=== PATIENT | female | born 1965 ===

== ENCOUNTER 2017-12-07 01:07 | Observation (INO) | payer OTHER ==
[~2017-12-07] VITALS: Ht 157.5 cm; Wt 75.3 kg
[~2017-12-07 01:07] MED LIST: CALC500T6 PO; CETI10CA8 PO; CHOL10005 PO; CYAN25004 PO; IBUP800T37 PO; MAGN400C PO; OMEP-125 PO; TRAM-420 PO
[2017-12-07] MEDS ORDERED: THROMBIN (BOVINE) 20,000 UNIT VIAL ONE (06:26)
[2017-12-07] MEDS ORDERED: PROPOFOL EMUL(*) 10MG/ML 20 ML 20 ML ONE (08:54)
[2017-12-07] MEDS ORDERED: ROCURONIUM BROM 10 MG/ML 10 ML ONE (08:54)
[2017-12-07] MEDS ORDERED: LIDOCAINE MPF 1% 5 ML VIAL ONE (08:54)
[2017-12-07] MEDS ORDERED: ONDANSETRON 4 MG/2 ML VIAL ONE (08:54)
[2017-12-07] MEDS ORDERED: DEXAMETHASONE SOD PHOS 10MG/ML ONE (08:54)
[2017-12-07] MEDS ORDERED: MIDAZOLAM 2 MG/2 ML VIAL ONE (08:55)
[2017-12-07] MEDS ORDERED: fentaNYL CITR 100 MCG/2 ML AMP ONE ×5 (08:55→17:20)
[2017-12-07 10:20] VITALS: BP 149/79
[2017-12-07] MEDS ORDERED: LIDOCAINE/SOD BICARB 8.4% SYR ID ONE (10:30)
[2017-12-07] MEDS ORDERED: ceFAZolin(*) 2GM/D5W 50ML 50 ML IVPB ONE (10:30)
[2017-12-07] MEDS ORDERED: NORMOSOL R SOLN(*) 1000 ML BAG 1,000 ML IV PRN (10:30)
[2017-12-07] MEDS ORDERED: MIDAZOLAM 2 MG/2 ML VIAL IVP PRN (10:30)
[2017-12-07] MEDS ORDERED: PHENYLEPHRINE 10 MG/1 ML VIAL ONE (10:51)
[2017-12-07] MEDS ORDERED: REMIFENTANIL HCL 1 MG VIAL ONE (10:51)
[2017-12-07] MEDS ORDERED: NS(*) 0.9% 100 ML BAG 100 ML ONE (10:51)
[2017-12-07] MEDS ORDERED: BUPIVACAIN 0.25% INJ 50ML VIAL ONE (11:44)
[2017-12-07] MEDS ORDERED: fentaNYL CITR 250 MCG/5 ML AMP ONE (14:14)
[2017-12-07] MEDS ORDERED: SUGAMMADEX SOD 200 MG/2 ML SDV ONE ×2 (14:35→17:59)
--- NOTE | 2017-12-07 15:26 | RADIOLOGY IMAGING REPORT ---
FACILITY: [facility] - [place] PATIENT NAME: Jocelin Zimmerman : 1965 MR: [id number] V: [id number] EXAM DATE: ORDERING PHYSICIAN: TONY GRIJALVA TECHNOLOGIST: [place] [facility] [place]ocelin Zimmre[place] : 1965 Visit/Account:[id number] Date of Sevice: 12/07/2017 Exam type: C-ARM FLUORO 1 HR History: LUMBAR SPINE HERNIATION Comparison: None. Findings: And AP and lateral cone-down intraoperative views of the lower lumbar spine worse similar for interpr etation demonstrating bilateral pedicle screws at L4 and L5 with posterior fixation rods and interver tebral disc spacer at L5-S1.. The cumulative continuous possibly dose was 3.27 mGray per meter squar ed. The total fluoroscopy time was 274.8 seconds IMPRESSION: 1. As above Report Dictated By: Dina Carter MD at 12/07/2017 3:20 PM Report E-Signed By: Dina Carter MD at 12/07/2017 3:22 PM WSN:[email or web address]
[2017-12-07] MEDS ORDERED: HYDROmorphone HCL 2 MG/ML SDV ONE (15:29)
[2017-12-07] MEDS ORDERED: FLUSH 10 ML SYR IVP PRN (15:35)
[2017-12-07] MEDS ORDERED: BISACODYL 10 MG SUPP PR PRN (15:35)
[2017-12-07] MEDS ORDERED: ACETAMINOPHEN 500 MG TAB PO PRN (15:35)
[2017-12-07] MEDS ORDERED: MAGNESIUM HYDROXIDE* 30ML UDCP PO PRN (15:35)
[2017-12-07] MEDS ORDERED: diphenhydrAMINE 25 MG CAP PO PRN (15:35)
[2017-12-07] MEDS ORDERED: ACETAMINOPHEN(*)1000 MG/100 ML 100 ML IVPB PRN (15:35)
[2017-12-07] MEDS ORDERED: LR(*) 1000 ML BAG 1,000 ML IV PRN (15:35)
[2017-12-07] MEDS: APAP/HYDROCODONE 325/5 TAB PO PRN ×3 (17:35→22:42)
[2017-12-07 18:13] VITALS: BP 140/85
[2017-12-07] MEDS: ceFAZolin(*) 2GM/D5W 50ML 50 ML IVPB SCH (18:30)
--- NOTE | 2017-12-07 18:59 | Hospitalist Progress Note ---
Subjective Progress Notes Subjective Patient seen post-operatively. She reports some initial nausea that has now resolved. She now has only surgical site pain. Reviewed PMHx and medications. Physical Exam Vital Signs Date Time Temp Pulse Resp B/P (MAP) Pulse Ox O2 Delivery O2 Flow Rate FiO2 12/07/17 18:13 97.8 81 16 140/85 (103) 100 Nasal Cannula 2.0 Intake and Output 12/08/17 07:01 Intake Total 3200 ml Output Total 100 ml Balance 3100 ml Intake Oral 200 ml IV Total 3000 ml Output Estimated Blood Loss 100 ml General Appearance: Alert, Awake Cardiovascular: Regular Rate and Rhythm Respiratory: Clear to Auscultation Assessment and Plan Problems: (1) GERD (gastroesophageal reflux disease) Status: Chronic Assessment & Plan: Will place her on Protonix while she is here (managed with omeprazole at home). (2) Multiple allergies Status: Chronic Assessment & Plan: Continue her Zyrtec. SACHA SANCHEZ MD Dec 07, 2017 18:59
[2017-12-07] MEDS: HYDROmorphone HCL 2 MG/ML SDV IVP PRN ×3 (19:15→22:43)
[2017-12-07] MEDS: ONDANSETRON 4 MG/2 ML VIAL IVP PRN (19:23)
[2017-12-07] MEDS: DIAZEPAM 5 MG TAB PO PRN (19:32)
[2017-12-07] MEDS: oxyCODONE HCL 5 MG CAP PO PRN (20:41)
[2017-12-07] MEDS: OMEPRAZOLE PO SCH (21:00)
[2017-12-07] MEDS: DOCUSATE SODIUM 100 MG CAP PO SCH (22:05)
[2017-12-07 22:58] VITALS: BP 133/91
[2017-12-08] MEDS: HYDROmorphone HCL 2 MG/ML SDV IVP PRN ×4 (00:38→21:49)
[2017-12-08] MEDS: oxyCODONE HCL 5 MG CAP PO PRN ×7 (00:38→20:39)
[2017-12-08] MEDS: ceFAZolin(*) 2GM/D5W 50ML 50 ML IVPB SCH ×2 (01:00→10:06)
[2017-12-08] MEDS: ONDANSETRON 4 MG/2 ML VIAL IVP PRN ×3 (02:50→17:16)
[2017-12-08] MEDS: BENZOCAINE/MENTHOL 1 EACH LOZG PO PRN ×3 (02:56→22:19)
[2017-12-08] MEDS: APAP/HYDROCODONE 325/5 TAB PO PRN ×2 (02:56→21:49)
[2017-12-08 03:00] VITALS: BP 118/74
[2017-12-08] MEDS: DIAZEPAM 5 MG TAB PO PRN ×3 (04:35→17:13)
[2017-12-08 07:52] VITALS: BP 118/72
[2017-12-08] MEDS: CHOLECALCIFEROL 1000 UNIT TAB PO SCH (08:01)
[2017-12-08] MEDS: DOCUSATE SODIUM 100 MG CAP PO SCH ×2 (08:01→20:39)
[2017-12-08] MEDS: MAGNESIUM OXIDE 400 MG TAB PO SCH (08:01)
[2017-12-08] MEDS: CYANOCOBALAMIN 1000 MCG TAB PO SCH (08:01)
[2017-12-08] MEDS: CALCIUM OYSTER SHELL 500MG TAB PO SCH (08:01)
[2017-12-08] MEDS: CETIRIZINE HCL 10 MG TAB PO SCH (08:01)
[2017-12-08] MEDS: OMEPRAZOLE PO SCH ×2 (08:03→20:40)
[2017-12-08 09:00] VITALS: Ht 157.5 cm; Wt 75.3 kg
[2017-12-08] MEDS ORDERED: PANTOPRAZOLE SOD 40 MG TABEC PO SCH (09:00)
[2017-12-08 11:05] VITALS: BP 110/71
--- NOTE | 2017-12-08 14:24 | Hospitalist Progress Note ---
Subjective Progress Notes Subjective Mrs. Zimmerman is a 52 y.o. female with PMH of Spinal stenosis and GERD. She underwent Spinal surgery by Dr. Mann. She tolerated the procedure and anesthesia. She is getting PT and doing better after surgery. She is afebrile, hemodynamically and medically stable. Patient Complains of: Neurological: Weakness, No: Confusion, Dizziness Cardiovascular: No: Chest Pain, Palpitations Respiratory: No: Cough, Congestion, Shortness of Breath Gastrointestinal: No Nausea, No Vomiting Genitourinary: No Dysuria, No Hematuria Musculoskeletal: Pain, No: Sprain, Strain Physical Exam Vital Signs Date Time Temp Pulse Resp B/P (MAP) Pulse Ox O2 Delivery O2 Flow Rate FiO2 12/08/17 11:05 98.6 87 16 110/71 (84) 94 Room Air 12/08/17 08:00 1.0 Intake and Output 12/09/17 07:00 Intake Total 240 ml Balance 240 ml Intake Oral 240 ml General Appearance: Alert, Awake, No Acute Distress, Afebrile Neuro: No Gross deficits Eyes: PERRLA ENT: Normal Neck: No Masses Cardiovascular: Regular Rate and Rhythm Respiratory: No Respiratory Distress GI: Soft and Non-Tender Extremities: Soft and Non Tender Integumentary: Skin Intact without Lesion / Mass Psych: Alert & Oriented X3, Appropriate Mood & Affect Assessment and Plan Problems: (1) GERD (gastroesophageal reflux disease) Status: Chronic Assessment & Plan: Will place her on Protonix while she is here (managed with omeprazole at home). 12/08: I will continue her current medical management. Anticipated d/c today or am as per Dr. Mann (2) Multiple allergies Status: Chronic Assessment & Plan: Continue her Zyrtec. Time Spent on Plan of Care: < 30 min Copies to: TONY MANN MD Exam Sepsis Risk: No Definite Risk ANGELICA WILSON MD Dec 08, 2017 14:24
[2017-12-08 15:11] VITALS: BP 111/69
[2017-12-08 19:41] VITALS: BP 109/69
[2017-12-09 00:10] VITALS: BP 118/71
[2017-12-09] MEDS: DIAZEPAM 5 MG TAB PO PRN ×2 (00:21→08:27)
[2017-12-09] MEDS: BENZOCAINE/MENTHOL 1 EACH LOZG PO PRN (00:21)
[2017-12-09 03:12] VITALS: BP 122/75
[2017-12-09] MEDS: APAP/HYDROCODONE 325/5 TAB PO PRN (03:13)
[2017-12-09] MEDS: HYDROmorphone HCL 2 MG/ML SDV IVP PRN (04:36)
[2017-12-09] MEDS: oxyCODONE HCL 5 MG CAP PO PRN ×3 (05:28→11:33)
[2017-12-09] MEDS ORDERED: OXYC-865 PO (08:11)
[2017-12-09] MEDS ORDERED: DOCU240C84 PO (08:11)
[2017-12-09] MEDS ORDERED: DIA5 PO (08:12)
[2017-12-09 08:23] VITALS: BP 120/77
[2017-12-09] MEDS: CETIRIZINE HCL 10 MG TAB PO SCH (08:25)
[2017-12-09] MEDS: DOCUSATE SODIUM 100 MG CAP PO SCH (08:25)
[2017-12-09] MEDS: CYANOCOBALAMIN 1000 MCG TAB PO SCH (08:27)
[2017-12-09] MEDS: MAGNESIUM OXIDE 400 MG TAB PO SCH (08:27)
[2017-12-09] MEDS: CALCIUM OYSTER SHELL 500MG TAB PO SCH (08:28)
[2017-12-09] MEDS: CHOLECALCIFEROL 1000 UNIT TAB PO SCH (08:28)
[2017-12-09] MEDS: OMEPRAZOLE PO SCH (08:29)
[2017-12-09] MEDS ORDERED: IBUP600T22 PO (09:35)
--- NOTE | 2017-12-09 16:06 | Hospitalist Progress Note ---
Subjective Progress Notes Subjective Mrs. Zimmerman is a 52 y.o. female with PMH of Spinal stenosis and GERD. She underwent Spinal surgery by Dr. Mann. She tolerated the procedure and anesthesia. She is getting PT and doing better after surgery. She is afebrile, hemodynamically and medically stable. 12/09: She is afebrile, hemodynamically and medically stable to be discharged today and she is cleared by surgery. Patient Complains of: Neurological: Weakness Cardiovascular: No: Chest Pain Respiratory: No: Cough, Shortness of Breath Gastrointestinal: No Nausea, No Vomiting Genitourinary: No Dysuria, No Hematuria Musculoskeletal: Pain, No: Sprain, Strain Physical Exam Vital Signs Date Time Temp Pulse Resp B/P (MAP) Pulse Ox O2 Delivery O2 Flow Rate FiO2 12/09/17 08:23 98.5 89 16 120/77 (91) 95 Room Air 12/09/17 03:12 1.0 Intake and Output 12/10/17 07:00 Intake Total 0 ml Balance 0 ml Intake Oral 0 ml General Appearance: Alert, Awake, No Acute Distress, Afebrile Neuro: No Gross deficits Eyes: PERRLA ENT: Normal Cardiovascular: Regular Rate and Rhythm Respiratory: No Respiratory Distress GI: Soft and Non-Tender Extremities: Soft and Non Tender Psych: Alert & Oriented X3, Appropriate Mood & Affect Assessment and Plan Problems: (1) GERD (gastroesophageal reflux disease) Status: Chronic Assessment & Plan: Will place her on Protonix while she is here (managed with omeprazole at home). 12/08: I will continue her current medical management. Anticipated d/c today or am as per Dr. Mann 12/09: She will follow Dr Mann (2) Multiple allergies Status: Chronic Assessment & Plan: Continue her Zyrtec. (3) Ectasia of artery (4) S/P laminectomy Status: Acute Assessment & Plan: She tolerated the procedure and she is stable and cleared by Dr. Mann and will be d/c'd today and f/u with Dr. mann Time Spent on Plan of Care: < 30 min Copies to: TONY MANN MD Exam Sepsis Risk: No Definite Risk ANGELICA WILSON MD Dec 09, 2017 16:06
--- NOTE | 2017-12-13 08:55 | OPERATIVE REPORT 1 ---
EVENT DATE: December 07, 2017 SURGEON: Augusto Mann MD ANESTHESIOLOGIST: Mauricio Bell MD ANESTHESIA: General endotracheal. CORPORATE SECURITIES RESEARCH ANALYST: Vikram Jeffries PA-C PREOPERATIVE DIAGNOSIS L4-L5 degenerative disk disease with facet cyst and left-sided L5 radiculopathy. POSTOPERATIVE DIAGNOSIS L4-L5 degenerative disk disease with facet cyst and left-sided L5 radiculopathy. PROCEDURE PERFORMED Minimally invasive L4-L5 transforaminal lumbar interbody fusion. IV FLUIDS 1400 mL. ESTIMATED BLOOD LOSS 50 mL. IMPLANTS 6.5 x 45 mm pedicle screws from [employer] x 4, 45 mm connecting rods from [employer] x 2, locking caps from [employer] x 4 and an 11 mm regular footprint curvilinear interbody graft from [employer] plus 3 mL of Vi-Bone bone graft. SPECIMENS None. DRAINS None. COMPLICATIONS None. DISPOSITION Post anesthesia care unit. INDICATIONS FOR SURGERY Ms. Zimmerman is a 52-year-old female that presented with chief complaint of severe radiating left lower extremity pain in an L5 distribution. She had tried injections, physical therapy and medications, none of which had given her significant relief of her symptoms. Her physical examination was significant for weak extensor hallucis longus on the left compared to the right, and her MRI showed significant degenerative disk disease with a large facet cyst at L4- L5 on the left significantly compression and displacing the traversing L5 nerve root. Secondary to failure of nonsurgical treatment, Ms. Zimmerman was offered and elected to undergo L4-L5 minimally invasive transforaminal lumbar interbody fusion. Prior to surgery, I explained in detail to the patient the possible risks of surgery, including bleeding, infection, nerve root injury, injury to surrounding structures, spinal fluid leak, instability, worsening and/or persistent pain, and anesthesia complications including , blindness, sexual dysfunction, etc. She voiced an understanding. We also discussed the value of electrophysiological monitoring, noting that electrophysiological monitoring at times can cease to be informative secondary to loss of signals in the absence of a correctable maneuver. In that situation, the surgeon is blinded to any neurologic changes and is unable to make any changes to alter that course. Throughout the procedure, there were no significant changes in neurophysiologic monitoring. DESCRIPTION OF PROCEDURE On the date of surgery, the patient was met in the preoperative hold area, and all questions were answered. Her operative site was identified and marked. She was then taken to the operating room, and placed in the prone position on a Felix table. Great care was taken to pad all bony protuberances and soft tissues. Appropriate perfusion pressures were maintained throughout anesthesia. Preoperative antibiotics were administered according to the appropriate timing schedule. Sponge and needle count were correct x 2 at closing. Final time out was undertaken by members of the operating team to confirm correct patient, correct level and correct surgery. Appropriate starting points for percutaneous pedicle screws were marked on the skin utilizing fluoroscopy. We then performed bilateral Estefania approaches approximated 1.5 cm lateral to the lateral borders of the pedicles bilaterally. Finger dissection was used once we had incised the fascia to come down on the transverse processes just lateral to the facet joints at the appropriate starting point for the L4 and L5 pedicles. Again, this was performed bilaterally. We then brought fluoroscopy in and utilized Jamshidi needles to cannulate the pedicles in the standard fashion. Specifically, on the left we placed the tips of the Jamshidis at the 9 oclock position of the pedicle, and then slowly advanced the Jamshidis through the pedicles under fluoroscopic guidance. Once we were through the isthmus of the pedicle and into the vertebral bodies, guide wires were placed. On the right side, a similar process was used, this time utilizing the 3 oclock position as our starting point for the Jamshidi needles. Once we had cannulated all four pedicles, we obtained a lateral radiograph again to ensure that the wires were in the appropriate position. We then utilized the tap to tap the pedicles, and we tested the tap with electrophysiologic monitoring to ensure that there was no evidence of bony breaching. We then chose 45 mm screws for all 4 pedicles, and on the right side , these were placed with the minimally invasive towers attached. On the left, we placed the screw shanks with the attached retractor blades. Once these were in, we utilized the minimally invasive retractor system to distract across the disk space and then use the medial blade and the integrated lighting system to visualize the facet joint at L4-L5 on the left. Osteotomes were used to first take off the inferior articular process of L4, taking care not to osteotomize the pedicle above. Once that was removed, we were then able to osteotomize the superior articular process of L5 and remove that as well, thus exposing the transforaminal space. I was able to identify the exiting L4 nerve root and the transiting L5 nerve root, and obtain good hemostasis. I then performed annulotomy of the L4-L5 disk and utilized a combination of rotating juan pablo, pituitary rongeurs and curettes to perform a discectomy of L4-L5. Once this was completed, we utilized an 11 mm trial and found that to have a good fit in the disk space. We then packed an 11 mm high curvilinear lordotic graft from [employer] with Vi-Bone bone graft and placed this within the interbody space. This was done under fluoroscopic guidance, and AP and lateral x-rays showed the interbody graft to be in good position. The minimally invasive retractor was then removed, and towers were placed on the L4 and L5 screw shanks on the left. The calipers were then used to measure for an appropriate length rey, and 45 mm rods were chosen. These were then passed subcutaneously, and placed down into the tulips of the screws bilaterally. Locking caps were then applied, and then the final tightening device was used to perform compression bilaterally across the disk space and finally tighten the locking caps. Once this was complete, final imaging studies were obtained to ensure appropriate placement of the interbody device as well as of the pedicle screw construct. The wound was then irrigated with copious sterile saline solution and closed in layers using interrupted sutures for the deep fascia, inverted interrupted sutures for the subcutaneous tissue and then a running subcuticular skin stitch. Sponge and needle counts were correct x 2. Patient will remain in the hospital until she meets discharge criteria. She will then follow up in clinic in two weeks time for wound check and examination. JAIRON
== END 2017-12-09 08:07 | disposition home or self-care (01) ==
LOC: OR 01:07 → MED 18:00
PROVIDERS: ADMIT Orthopaedic Surgery; ATTEND Orthopaedic Surgery
DX: M51.16 Intervertebral disc disorders with radiculopathy, lumbar region (principal); M71.38 Other bursal cyst, other site
CPT/HCPCS: 22558; 76000; 97116; 97161; C1713; G0378; J1100; J1170; J2001; J2250; J2370; J2405; J2704; J3010; J3490; J7050; J7120; J0690